=== PATIENT | female | born 1965 | race Caucasian/White ===

== ENCOUNTER → 2022-03-28 10:31 | Outpatient (CLI) | payer BC, SELFPAY ==
--- NOTE | ~2022-03-28 | MM_ITS ---
EXAMINATION: MM screening [facility] BI w eddie HISTORY: Screening mammogram TECHNIQUE: Craniocaudal and mediolateral oblique 3-D tomosynthesis images were obtained and synthetic 2-D images were generated. CAD analysis was submitted and interpreted. COMPARISON: 11/18/2019 bilateral screening mammogram BREAST PARENCHYMAL COMPOSITION: There are scattered areas of fibroglandular density. FINDINGS: Again noted are stable bilateral circumscribed benign-appearing upper outer quadrant intram ammary lymph nodes. There is no evidence of suspicious mass, calcification, or architectural distorti on to suggest malignancy in either breast. There has been no suspicious interval change. IMPRESSION: 1. No mammographic evidence of malignancy. 2. Recommend routine screening mammography in one year. BI-RADS Category 2: Benign finding(s). Reviewed, dictated and finalized at location A.
== END ==
PROVIDERS: Visit Provider Nurse Practitioner
DX: Z12.31 Encounter for screening mammogram for malignant neoplasm of breast (principal); Z13.820 Encounter for screening for osteoporosis
CPT/HCPCS: 77063; 77067

== ENCOUNTER → 2022-04-27 10:05 | Outpatient (CLI) | payer BC, SELFPAY ==
--- NOTE | ~2022-04-27 | DEXA_ITS ---
Bone Density Report Name: BRUCE STOKES Age: 56 Sex: Female Ethnicity: White Date of : 1965 Indication: postmenopausal osteoporosis; height loss; Referring Provider: Ronak, Mona Study: Bone densitometry was performed. Exam Date: April 27, 2022 Accession number: [id number] Bone Density: Region BMD T-score Z-score Classification AP Spine (L1-L4) 0.729 -2.9 -1.6 Osteoporosis Femoral Neck (Left) 0.555 -2.7 -1.5 Osteoporosis Total Hip (Left) 0.668 -2.2 -1.4 Osteopenia Femoral Neck (Right) 0.536 -2.8 -1.6 Osteoporosis Total Hip (Right) 0.642 -2.5 -1.6 Osteoporosis Total Hip Mean 0.655 -2.4 -1.5 Osteopenia World Health Organization criteria for BMD impression classify patients as: Normal (T-score at or above -1.0), Osteopenia (T-score between -1.0 and -2.5), or Osteoporosis (T-score at or below -2.5). 10-year Fracture Risk: FRAX not reported because: Some T-score for Spine Total or Hip Total or Femoral Neck at or below -2.5 Previous Exams: Region Exam Age BMD T-score BMD Change BMD Change Date g/cm2 vs Baseline vs Previous AP Spine(L1-L4) 04/27/2022 56 0.729 -2.9 -0.028* -0.028* 11/18/2019 54 0.756 -2.6 Total Hip(Left) 04/27/2022 56 0.668 -2.2 0.003 0.003 11/18/2019 54 0.665 -2.3 Total Hip(Right) 04/27/2022 56 0.642 -2.5 -0.004 -0.004 11/18/2019 54 0.645 -2.4 *Denotes significance at 95% confidence level, LSC for AP Spine = 0.022 g/cm2, LSC for Total Hip = 0.027 g/cm2 Clinical Information Provided by Patient: Has used the following medications: Vitamin D, Calcium, MTV Patient maximum height was 67.0 Menopause Age: 39 Drinks caffeinated beverages Onset of menses at age 13 Number of children 2 Impression: The patient has osteoporosis, based on the Total Spine T-score. The BMD for the AP Spine(L1-L4) decreased, changing by -0.028 since the last DXA exam. Discussion: INCREASED RISK OF FRACTURE. BONE DENSITY IS UNDESIRABLY LOW AT ONE OR MORE SKELETAL SITES, CONSISTENT WITH POSTMENOPAUSAL OSTEOPOROSIS. This patient's lowest T-score meets the World Health Organization's (WHO) criteria for osteoporosis at one or more sites (T-score -2.5 or below). In untreated patients, the risk of osteoporotic fracture increases approximately two-fold for each 1.0 SD decrease in T-score. Low bone density is not the only risk factor for fracture; also consider factors such as patient's age
== END ==
PROVIDERS: Visit Provider Nurse Practitioner
DX: Z78.0 Asymptomatic menopausal state (principal); Z13.820 Encounter for screening for osteoporosis; M81.0 Age-related osteoporosis without current pathological fracture; M85.852 Other specified disorders of bone density and structure, left thigh; M85.851 Other specified disorders of bone density and structure, right thigh
CPT/HCPCS: 77080

== ENCOUNTER 2022-05-24 14:53 | Outpatient (CLI) | payer BC, SELFPAY ==
[2022-05-24 16:04] LABS: Vitamin D 25 Hydroxy 72.5 ng/mL
== END 2022-05-24 14:54 | disposition home or self-care (01) ==
LOC: ANHLAB 14:56
PROVIDERS: Visit Provider Obstetrics & Gynecology Gynecology
DX: Z13.21 Encounter for screening for nutritional disorder (principal)
CPT/HCPCS: 36415; 82306

== ENCOUNTER → 2023-12-12 11:20 | Outpatient (CLI) | payer BC, SELFPAY ==
--- NOTE | ~2023-12-12 | XR_ITS ---
XR wrist LT min 3V DATE: 12/12/2023 11:33 INDICATION: Radial pain for 2 months; no injury TECHNIQUE: 4 views COMPARISON: None FINDINGS: No fracture or dislocation, periosteal reaction or bone destruction. Joint spaces appear we ll preserved. No erosive change or chondrocalcinosis. IMPRESSION: No significant abnormality Reviewed, dictated and finalized at location B. IN [employer] IMPRESSION: No significant abnormality
== END ==
PROVIDERS: PCP Family Medicine; Visit Provider Family Medicine
DX: M25.532 Pain in left wrist (principal)
CPT/HCPCS: 73110

== ENCOUNTER → 2023-12-24 11:14 | Outpatient (CLI) | payer BC, SELFPAY ==
--- NOTE | ~2023-12-24 | MM_ITS ---
EXAMINATION: MM screening christina BI w eddie HISTORY: Screening TECHNIQUE: Craniocaudal and mediolateral oblique 3-D tomosynthesis images were obtained and synthetic 2-D images were generated. CAD analysis was submitted and interpreted. COMPARISON: Comparison to multiple prior studies sequentially, with oldest reviewed study dated 11/18. BREAST PARENCHYMAL COMPOSITION: There are scattered areas of fibroglandular density. FINDINGS: There is no evidence of suspicious mass, calcification, or architectural distortion to sugg est malignancy in either breast. There has been no suspicious interval change. IMPRESSION: 1. No mammographic evidence of malignancy. 2. Recommend routine screening mammography in one year. BI-RADS Category 1: Negative Reviewed, dictated and finalized at location A. [employer]IV[employer] DIRECTOR
== END ==
PROVIDERS: PCP Obstetrics & Gynecology Gynecology; Visit Provider Obstetrics & Gynecology Gynecology
DX: Z12.31 Encounter for screening mammogram for malignant neoplasm of breast (principal)
CPT/HCPCS: 77063; 77067

== ENCOUNTER 2024-08-07 12:12 | Outpatient (CLI) | payer BC, SELFPAY ==
--- NOTE | ~2024-08-07 | DEXA_ITS ---
Bone Density Report Name: BRUCE STOKES Age: 59 Sex: Female Ethnicity: White Date of : 1965 Indication: postmenopausal; screening for osteoporosis; height loss; Referring Provider: Ronak, Mona Study: Bone densitometry was performed. Exam Date: August 07, 2024 Accession number: [id number] Bone Density: Region BMD T-score Z-score Classification AP Spine(L1-L4) 0.769 -2.5 -1.1 Osteoporosis Femoral Neck (Left) 0.543 -2.8 -1.5 Osteoporosis Total Hip (Left) 0.746 -1.6 -0.7 Osteopenia Femoral Neck (Right) 0.540 -2.8 -1.5 Osteoporosis Total Hip (Right) 0.724 -1.8 -0.8 Osteopenia Femoral Neck Mean 0.542 -2.8 -1.5 Osteoporosis Total Hip Mean 0.735 -1.7 -0.8 Osteopenia World Health Organization criteria for BMD impression classify patients as: Normal (T-score at or above -1.0), Osteopenia (T-score between -1.0 and -2.5), or Osteoporosis (T-score at or below -2.5). 10-year Fracture Risk: FRAX not reported because: Some T-score for Spine Total or Hip Total or Femoral Neck at or below -2.5 Treated for osteoporosis Clinical Information Provided by Patient: Is being treated for osteoporosis Has used the following medications: Vitamin D, Calcium, multivitamin Patient maximum height was 66 Menopause Age: 44 Drinks caffeinated beverages Onset of menses at age 13 Number of children 2 Impression: The patient has osteoporosis, based on the Left Femoral Neck T-score. Discussion: It is important to ask patients whether they are taking their medications and to encourage continued and appropriate compliance with their osteoporosis therapies to reduce fracture risk. It is also important to review their risk factors and encourage appropriate calcium and vitamin D intakes, exercise, fall prevention and other lifestyle measures. Follow-Up: Consider a repeat BMD and Vertebral Fracture Assessment (VFA) exam in 2 years or sooner if medically necessary, to reassess this patient's status. Reported by: RONNIE on 08/07/2024 12:37:00 PM. Reviewed, dictated and finalized at location ALady BRIZUELA
== END 2024-08-07 12:13 | disposition home or self-care (01) ==
PROVIDERS: PCP Family Medicine; Visit Provider Nurse Practitioner
DX: Z78.0 Asymptomatic menopausal state (principal); M85.89 Other specified disorders of bone density and structure, multiple sites; M81.0 Age-related osteoporosis without current pathological fracture
CPT/HCPCS: 77080

== ENCOUNTER 2024-09-16 00:36 | Day surgery (SDC) | payer BC, SELFPAY ==
[2024-09-08 09:33] VITALS: BMI 24.0
[2024-09-16 08:25] VITALS: BP 108/66; PULSE 67; RESP 20; TEMP 36.4; O2SAT 100; BMI 24.0
[2024-09-16] MEDS: LACTATED RINGERS 1,000 ML 150 ML IV CONT (08:46)
--- NOTE | 2024-09-16 09:11 | P.PNAN_ITS ---
Anes - Initial Pre Proc Eval Procedure: Operation Date: 09/16/24 09:30 Proposed Procedures p Screening Colonoscopy - Conrado Medina MD Date/Time: 09/16/24 09:11 Surgeon: Conrado Medina MD Pre Op Diagnosis: screening colon Patient Data Age: 59 Gender: F Height: 1.63 m Weight: 63.4 kg Last Vital Signs Temp 97.6 F 09/16/24 08:25 Pulse 67 09/16/24 08:25 Resp 20 09/16/24 08:25 BP 108/66 09/16/24 08:25 Pulse Ox 100 09/16/24 08:25 O2 Del Method Room Air 09/16/24 08:25 Allergies Allergy/AdvReac Type Severity Reaction Status Date / Time codeine Allergy Unknown Rash Verified 09/16/24 08:31 Home Medications Medication Instructions Recorded Confirmed Type cholecalciferol (vitamin D3) 50 50 mcg PO DAILY 11/06/23 09/16/24 History mcg (2,000 unit) capsule doxycycline hyclate 50 mg capsule 50 mg PO DAILY 11/06/23 09/16/24 History fish oil-dha-epa 1,200 mg-144 1 cap PO DAILY 11/06/23 09/16/24 History mg-216 mg capsule fluoxetine 20 mg capsule 20 mg PO DAILY 11/06/23 09/16/24 History mecobalamin (vitamin B12) 1,000 1,000 mcg PO DAILY 11/06/23 09/16/24 History mcg chewable tablet multivitamin 1 tablet PO DAILY 11/06/23 09/16/24 History valacyclovir 1 gram tablet 1,000 mg PO DAILY 11/06/23 09/16/24 History (Valtrex) biotin 5,000 mcg chewable tablet 5,000 mcg PO DAILY 09/08/24 09/16/24 History ibandronate 150 mg tablet 150 mg PO MONTHLY 09/08/24 09/16/24 History rosuvastatin 5 mg tablet 5 mg PO DAILY 09/08/24 09/16/24 History Patient hx anesthesia problems: none Family hx anesthesia problems: none Results Review: All pre-operative results and documents have been reviewed as part of the pre- operative evaluation. [facility] Social History Social History Social History: Smoking status: Never smoker Second hand tobacco smoke exposure: No Alcohol intake: current Drinks per week: 5 Substance use: never Substance use type: does not use Do You Feel Safe in your Home?: Yes Lack of Transportation: No Lack of Food: Never True Current Housing: I Have Housing Concerned About Future Housing: No Difficulty Paying Gas/Electric Bills: No Difficulty Paying for Meds: No Education: Associate Degree Difficulty w/ Childcare or Family Care: No Living arrangements: with family Occupation/Education: retired Gender identity (if verbalized by the patient): Female Sexual Orientation (if Verbalized by the Patient): Straight or Heterosexual Spiritual care concerns: No Anes - Eval Final PreProcedure Day of Procedure 09/16/24 09:11 Patient weight: normal Heart: regular rate and rhythm Lungs: clear to auscultation Airway: Mallampati scale Neurological: alert and oriented Last oral intake: >/= 8 hours ASA classification: II Emergent: no Anesthetic plan: proceed Anesthesia type and monitoring: general GIVS and standard monitoring Results Review: All pre-operative results and documents have been reviewed as part of the pre- operative evaluation. Hyperlipidemia. Pt active can walk 1-2 flight of stairs, elliptical, wts, no cp or sob. Informed Consent: The patient's anesthetic plan and its attendant risks and benefits were discussed with the patient/family/POA. Questions were solicited and answers provided to the satisfaction of the patient/family/POA.
--- NOTE | 2024-09-16 09:41 | PM.IMHP ---
H&P: HPI History of Present Illness Date/Time: 09/16/24 09:41 Chief Complaint: Screening colonoscopy Narrative: This is the patient's first colonoscopy. There are no GI symptoms and there is no family history of colorectal cancer. Review of Systems Review of Systems: All systems reviewed & are unremarkable except as noted in HPI and below PMFSH Social History Social History Social History: Smoking status: Never smoker Second hand tobacco smoke exposure: No Alcohol intake: current Drinks per week: 5 Substance use: never Substance use type: does not use Do You Feel Safe in your Home?: Yes Lack of Transportation: No Lack of Food: Never True Current Housing: I Have Housing Concerned About Future Housing: No Difficulty Paying Gas/Electric Bills: No Difficulty Paying for Meds: No Education: Associate Degree Difficulty w/ Childcare or Family Care: No Living arrangements: with family Occupation/Education: retired Gender identity (if verbalized by the patient): Female Sexual Orientation (if Verbalized by the Patient): Straight or Heterosexual Spiritual care concerns: No Meds Home Medications and Allergies Home Medications Medication Instructions Recorded Confirmed Type cholecalciferol (vitamin D3) 50 50 mcg PO DAILY 11/06/23 09/16/24 History mcg (2,000 unit) capsule doxycycline hyclate 50 mg capsule 50 mg PO DAILY 11/06/23 09/16/24 History fish oil-dha-epa 1,200 mg-144 1 cap PO DAILY 11/06/23 09/16/24 History mg-216 mg capsule fluoxetine 20 mg capsule 20 mg PO DAILY 11/06/23 09/16/24 History mecobalamin (vitamin B12) 1,000 1,000 mcg PO DAILY 11/06/23 09/16/24 History mcg chewable tablet multivitamin 1 tablet PO DAILY 11/06/23 09/16/24 History valacyclovir 1 gram tablet 1,000 mg PO DAILY 11/06/23 09/16/24 History (Valtrex) biotin 5,000 mcg chewable tablet 5,000 mcg PO DAILY 09/08/24 09/16/24 History ibandronate 150 mg tablet 150 mg PO MONTHLY 09/08/24 09/16/24 History rosuvastatin 5 mg tablet 5 mg PO DAILY 09/08/24 09/16/24 History Allergies Allergy/AdvReac Type Severity Reaction Status Date / Time codeine Allergy Unknown Rash Verified 09/16/24 08:31 Vital Signs Vital Signs - 24 hr 09/16/24 08:25 Temperature 97.6 F Pulse Rate 67 Respiratory Rate 20 Blood Pressure 108/66 Pulse Oximetry 100 Oxygen Delivery Room Air Exam Const: General: cooperative and healthy appearing Resp: Effort & Inspection: normal respiratory effort and able to speak in complete sentences Auscultation: clear to auscultation bilaterally Cardio: Rate: regular rate Rhythm: regular rhythm GI: Inspection: normal to inspection GI Palp: No No hepatosplenomegaly present Auscultation: normal bowel sounds Rectal Exam: deferred Skin: General skin exam: normal color Psych: Appearance: grossly normal Mental Status: mental status grossly normal Assessment and Plan Assessment and plan (1) Screening for malignant neoplasm of colon: Code(s): Z12.11 - Encounter for screening for malignant neoplasm of colon Status: Acute Plan The patient is deemed a good candidate for the procedure. Consent signed. Will proceed.
[2024-09-16 10:20] VITALS: BP 101/64; PULSE 53; RESP 18; O2SAT 97
[2024-09-16 10:30] VITALS: BP 112/74; PULSE 54; RESP 17; O2SAT 97
[2024-09-16 10:40] VITALS: BP 116/76; PULSE 54; RESP 17; O2SAT 100
== END 2024-09-16 10:51 | disposition home or self-care (01) ==
PROVIDERS: PCP Family Medicine; Visit Provider Internal Medicine Gastroenterology
PROC: 0DJD8ZZ Inspection of Lower Intestinal Tract, Via Natural or Artificial Opening Endoscopic (ICD-10-PCS; CPT 45378; principal; 2024-09-16 09:30)
DX: Z12.11 Encounter for screening for malignant neoplasm of colon (principal); D12.5 Benign neoplasm of sigmoid colon; K64.0 First degree hemorrhoids; Z79.83 Long term (current) use of bisphosphonates
CPT/HCPCS: 45385; 88305; J2003; J2704; J7120

== ENCOUNTER 2025-02-18 08:19 | Outpatient (CLI) | payer BC, SELFPAY ==
--- NOTE | ~2025-02-18 | CT_ITS ---
EXAMINATION: CT sinus wo con DATE: 02/18/2025 08:39 INDICATION: Chronic sinusitis TECHNIQUE: Computed tomography (CT) of the paranasal sinuses was performed without intravenous contra st. The dose-length product was 280.01 mGy-cm. Automated exposure control and iterative reconstructio n technique were employed. COMPARISON: None FINDINGS: Leftward nasal septal deviation. Ostiomeatal units are patent. No significant mucosal thick ening of the paranasal sinuses. No air-fluid levels. No mucoperiosteal reaction. Mastoids are pneumat ized. No midline shift. IMPRESSION: 1. No significant sinus disease. Reviewed, dictated and finalized at location A.
== END 2025-02-18 08:20 | disposition home or self-care (01) ==
PROVIDERS: PCP Family Medicine; Visit Provider Nurse Practitioner Family
DX: J32.9 Chronic sinusitis, unspecified (principal)
CPT/HCPCS: 70486

== ENCOUNTER 2025-08-26 14:28 | Outpatient (CLI) | payer BC, SELFPAY ==
--- NOTE | ~2025-08-26 | MM_ITS ---
EXAMINATION: MM screening [facility] BI w eddie HISTORY: Screening TECHNIQUE: Craniocaudal and mediolateral oblique 3-D tomosynthesis images were obtained and synthetic 2-D images were generated. CAD analysis was submitted and interpreted. COMPARISON: Comparison to multiple prior studies sequentially, with oldest reviewed study dated 11/18/2019. BREAST PARENCHYMAL COMPOSITION: Not dense: There are scattered areas of fibroglandular density. FINDINGS: There is no evidence of suspicious mass, calcification, or architectural distortion to suggest malignancy in either breast. There has been no suspicious interval change. IMPRESSION: 1. No mammographic evidence of malignancy. 2. Recommend routine screening mammography in one year. BI-RADS Category 1: Negative Reviewed, dictated and finalized at location B.
== END 2025-08-26 14:29 | disposition home or self-care (01) ==
PROVIDERS: PCP Family Medicine; Visit Provider Obstetrics & Gynecology Gynecology
DX: Z12.31 Encounter for screening mammogram for malignant neoplasm of breast (principal)
CPT/HCPCS: 77063; 77067